=== PATIENT | female | born 1995 | race Caucasian/White ===

== ENCOUNTER 2016-10-03 22:40 | Emergency (ER) | payer BC ==
[~2016-10-03] VITALS: Ht 160 cm; Wt 123.5 kg
[~2016-10-03 22:40] MED LIST: ACYC800T PO; ALBU8.5H5 IH; CETI10CA PO; FLUT16SP17 NASAL; UDROBDM PO
[2016-10-03 22:43] VITALS: Ht 160 cm; Wt 123.5 kg
[2016-10-04] MEDS ORDERED: ELIM TOP (01:53)
[2016-10-04] MEDS ORDERED: BEN25 PO (01:54)
[2016-10-04] MEDS ORDERED: HC30CR25 TOP (01:54)
--- NOTE | 2016-10-04 01:59 | ERD ---
ER Documentation Chief Complaint Date/Time DATE: 10/04/16 TIME: 01:56 Chief Complaint ABD. RASH WITH UTICARIA X 3 DAYS; RECENT EXPOSURE TO SCABIES HPI Patient is a 21-year-old female who presents the ED with a rash on her abdomen 3 days. 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 She states that she has been taking care of this patient. She states that she has itchiness on her abdomen. She denies any rashes anywhere else on her body. She denies scabbing of her rashes. She denies chest pain, cough, shortness of breath or difficulty breathing. She denies angioedema or shortness of breath. She denies nausea, vomiting or diarrhea. She has no other symptoms today. ROS All systems reviewed and are negative except as per history of present illness. Medications Home Meds Active Scripts Diphenhydramine Hcl* (Benadryl*) 25 Mg Cap, 25 MG PO Q6, #30 CAP Prov:TADEO BLOCK PA-C 10/04/16 Hydrocortisone* Topical (Hydrocortisone* Topical) 2.5%-28.3 Gm Cream..g., 1 APPLIC TOP BID, #1 TUB Prov:TADEO BLOCK PA-C 10/04/16 Permethrin* (Elimite*) 5% Cr, 3 APPLIC TOP ONCE for 7 Days, TUB Prov:TADEO BLOCK PA-C 10/04/16 Acyclovir* (Acyclovir*) 800 Mg Tablet, 800 MG PO BID for 5 Days, TAB 1 Refill Prov:LOS PATTERSON PA-C 08/16/16 Guaifenesin-Dextromethorphan* (Robitussin* DM) 100MG/10MG/5ML Syrup, 10 ML PO Q6H Y for COUGH for 5 Days, ML Prov:JEREMI RIVERA PA-C 05/27/16 Fluticasone Propionate* (Fluticasone Propionate* Nasal) 50 Mcg/[place] - 16 Gm [place].susp, 1 SPRAY NASAL BID, #1 BOTTLE TO EACH NOSTRIL Prov:JEREMI RIVERA PA-C 05/27/16 Cetirizine Hcl* (Zyrtec*) 10 Mg Capsule, 10 MG PO DAILY, #14 TAB.CHEW Prov:JEREMI RIVERABrittany SCHILLING 05/27/16 Albuterol Sulfate* (Albuterol Sulfate* HFA) 8.5 Gm Hfa.aer.ad, 2 PUFF IH Q6, #1 EA Prov:SARTHAK GARCIABrittany SCHILLING 07/17/15 Reported Medications [None] No Conflict Check 07/11/12 Allergies Allergies: Coded Allergies: No Known Allergy (Unverified , 07/11/12) PMhx/Soc History of Surgery: No Anesthesia Reaction: No Hx Neurological Disorder: No Hx Respiratory Disorders: No Hx Cardiac Disorders: No Hx Psychiatric Problems: No Hx Miscellaneous Medical Probl: Yes (cold sores) Hx Alcohol Use: No Hx Substance Use: No Hx Tobacco Use: No Physical Exam Vitals Vital Signs Date Time Temp Pulse Resp B/P Pulse Ox O2 Delivery O2 Flow Rate FiO2 10/03/16 22:43 98.5 104 18 132/61 97 Physical Exam GENERAL: Well-developed, well-nourished female. Appears in no acute distress. HEAD: Normocephalic, atraumatic. NECK: Supple. No lymphadenopathy or thyromegaly. No meningismus. negative kernig. negative brudinski. LUNG: Clear to auscultation bilaterally. No rhonchi, wheezing, rales or coarse breath sounds. ABDOMEN: No scars, ecchymosis. Soft, nontender, and nondistended. Positive bowel sounds in all four quadrants. No rebound tenderness, no guarding. (-) McBurneys point tenderness. No CVA tenderness. erythematous rash on abdomen. Not scabbing. No signs of infection. BACK: No midline tenderness. Extremities: Equal pulses bilaterally. No peripheral clubbing, cyanosis or edema. No unilateral leg swelling. NEUROLOGIC: Alert and oriented. Moving all four extremities. 5/5 strength in all extremities. Normal speech. Steady gait. SKIN: Normal color. Warm and dry. No rashes or lesions. Capillary refill < 2 seconds Procedures/MDM ER COURSE: I kept the patient and/or family informed of laboratory and diagnostic imaging results throughout the emergency room course. MEDICAL DECISION MAKING: This is a 21-year-old female who presents with rash. Vital signs were reviewed. Patient is afebrile. Patient is not hypoxic. Patient is not toxic or ill- appearing. Patient has a rash of uncertain etiology. I have low suspicion for scabies. However I will be giving patient permethrin as preventative measures. Her pulse of 104 is likely stress reaction. I have low suspicion for any cardiac emergency. Low suspicion for pneumonia, PE, pneumothorax, ACS, epiglottitis, obstruction, TB, pertussis, meningitis, sepsis. DISCHARGE: At this time, patient is stable for discharge and outpatient management with no new complaints during the ER course. Patient was sent home with permethrin, Benadryl and hydrocortisone. Patient will be discharged home with instructions to recheck for new or worsening symptoms such as fever, nausea, weakness, LOC and to follow up with primary care in the next 1-2 days. Patient was advised to return to the ER for any new or worsening symptoms. Plan was discussed and patient and/or family understands and agrees. Home instructions were given. Departure Diagnosis: Primary Impression: Rash Condition: Stable Patient Instructions: Scabies Additional Instructions: Call your primary care doctor TOMORROW for an appointment during the next 1-2 days.See the doctor sooner or return here if your condition worsens before your appointment time. TADEO BLOCK PA-C Oct 04, 2016 01:59
[2016-10-04 02:12] VITALS: BP 128/76; PULSE 88; RESP 18; TEMP 98
== END 2016-10-04 02:13 | disposition home or self-care (01) ==
LOC: FTE 22:40
DX: R21 Rash and other nonspecific skin eruption (principal); E11.9 Type 2 diabetes mellitus without complications
CPT/HCPCS: 99283

== ENCOUNTER 2016-11-22 17:59 | Emergency (ER) | payer BC ==
[~2016-11-22] VITALS: Ht 160 cm; Wt 113.6 kg
[~2016-11-22 17:59] MED LIST changes: +BEN25 PO; +ELIM TOP; +HC30CR25 TOP
[2016-11-22 18:05] VITALS: Ht 160 cm; Wt 113.6 kg
[2016-11-22] MEDS ORDERED: KETOROLAC 30 MG INJ IV STA (18:13)
[2016-11-22] MEDS ORDERED: HYDROCODONE/APAP (5/325) TAB PO ONE (18:30)
[2016-11-22] MEDS ORDERED: morphine 4 MG/ML VIAL IV STA (18:36)
[2016-11-22] MEDS ORDERED: ONDANSETRON 4 MG INJ IV STA (18:47)
--- NOTE | 2016-11-22 19:10 | ERD ---
ER Documentation Chief Complaint Date/Time DATE: 11/22/16 TIME: 19:07 Chief Complaint 06/26 r. ankle pain x 1 day after fall HPI This is a 21-year-old female who presents to the emergency department today complaining of right right leg pain after falling down some stairs earlier this evening. Patient was brought in by ambulance. States she is in severe pain. Denies any previous trauma. Denies any fevers or chills. ROS All systems reviewed and are negative except as per history of present illness. Medications Home Meds Active Scripts Neomycin Mcdonough/Bacitrac Zn/Poly (Triple Antibiotic Ointment) 1 Each Oint.pack, 1 EACH TP BID, #10 Prov:JEREMI RIVERA PA-C 11/22/16 Naproxen* (Naprosyn*) 500 Mg Tablet, 500 MG PO BID Y for PAIN AND/OR INFLAMMATION, #30 TAB Prov:JEREMI RIVERA PA-C 11/22/16 Hydrocodone/Acetaminophen (Mccammon 5-325 Tablet) 1 Each Tablet, 1 TAB PO Q6H Y for PAIN, #15 TAB Prov:JEREMI RIVERA PA-C 11/22/16 Diphenhydramine Hcl* (Benadryl*) 25 Mg Cap, 25 MG PO Q6, #30 CAP Prov:TADEO BLOCK PA-C 10/04/16 Hydrocortisone* Topical (Hydrocortisone* Topical) 2.5%-28.3 Gm Cream..g., 1 APPLIC TOP BID, #1 TUB Prov:TADEO BLOCK PA-C 10/04/16 Permethrin* (Elimite*) 5% Cr, 3 APPLIC TOP ONCE for 7 Days, TUB Prov:TADEO BLOCK PA-C 10/04/16 Acyclovir* (Acyclovir*) 800 Mg Tablet, 800 MG PO BID for 5 Days, TAB 1 Refill Prov:LOS PATTERSON PA-C 08/16/16 Guaifenesin-Dextromethorphan* (Robitussin* DM) 100MG/10MG/5ML Syrup, 10 ML PO Q6H Y for COUGH for 5 Days, ML Prov:JEREMI RIVERA PA-C 9/10/16 Fluticasone Propionate* (Fluticasone Propionate* Nasal) 50 Mcg/[place] - 16 Gm [place].susp, 1 SPRAY NASAL BID, #1 BOTTLE TO EACH NOSTRIL Prov:JEREMI RIVERA PA-C 05/27/16 Cetirizine Hcl* (Zyrtec*) 10 Mg Capsule, 10 MG PO DAILY, #14 TAB.CHEW Prov:JEREMI RIVERA PA-C 05/27/16 Albuterol Sulfate* (Albuterol Sulfate* HFA) 8.5 Gm Hfa.aer.ad, 2 PUFF IH Q6, #1 EA Prov:RADHASARTHAK PA-C 07/17/15 Reported Medications [None] No Conflict Check 07/11/12 Allergies Allergies: Coded Allergies: No Known Allergy (Unverified , 11/22/16) PMhx/Soc Medical and Surgical Hx: pt denies Medical Hx, pt denies Surgical Hx History of Surgery: No Anesthesia Reaction: No Hx Neurological Disorder: No Hx Respiratory Disorders: No Hx Cardiac Disorders: No Hx Psychiatric Problems: No Hx Miscellaneous Medical Probl: Yes (cold sores) Hx Alcohol Use: No Hx Substance Use: No Hx Tobacco Use: No Smoking Status: Never smoker Physical Exam Vitals Vital Signs Date Time Temp Pulse Resp B/P Pulse Ox O2 Delivery O2 Flow Rate FiO2 11/22/16 18:05 98.6 130 20 126/85 98 Physical Exam Const: Obese, mild distress Head: Atraumatic Eyes: Normal Conjunctiva ENT: Normal External Ears, Nose and Mouth. Neck: Full range of motion..~ No meningismus. Resp: Clear to auscultation bilaterally Cardio: Regular rate and rhythm, no murmurs Abd: Soft, non tender, non distended. Normal bowel sounds Skin: No petechiae or rashes. Abrasion left tibia Back: No midline or flank tenderness MSK right knee, tibia, ankle, foot with no obvious deformity. Effusion over lateral aspect of right ankle. Unable to assess range of motion secondary to pain. Pulses 2+. Distal neurovascularly intact. Neur: Awake and alert Psych: Normal Mood and Affect Results 24 hrs Current Medications Medications (Trade) Dose Ordered Sig/Jg Route PRN Reason Start Time Stop Time Status Last Admin Dose Admin Ketorolac Tromethamine (Toradol) 30 mg ONCE STAT IV 11/22/16 18:13 11/22/16 18:14 Cancel Acetaminophen/ Hydrocodone Bitart (Mccammon (5/325)) 1 tab ONCE ONCE PO 11/22/16 18:30 11/22/16 18:31 DC 11/22/16 18:25 Morphine Sulfate (morphine) 4 mg ONCE STAT IV 11/22/16 18:36 11/22/16 18:37 DC 11/22/16 18:45 Ondansetron HCl (Zofran Inj) 4 mg ONCE STAT IV 11/22/16 18:47 11/22/16 18:48 DC 11/22/16 18:51 DIAGNOSTIC IMAGING REPORT Patient: [place] MUIR : 1995 Age: 21 Sex: F MR #: [id number] DOS: 11/22/16 0000 Ordering MD: JEREMI RIVERA PA-C Location: [facility] Room/Bed: PROCEDURE: XR Ankle. CLINICAL INDICATION: Right ankle pain. TECHNIQUE: Three views of the right ankle were performed. COMPARISON: None. FINDINGS: No acute fracture or dislocation is seen. The ankle mortise is symmetric. No radiopaque foreign body is identified. Moderate soft tissue swelling overlying the lateral ankle is noted. IMPRESSION: 1. No acute fracture or dislocation. 2. Moderate soft tissue swelling overlying the lateral ankle. RPTAT: HH .Jagdeep Graf MD, MD Date Time Electronically viewed and signed by .Jagdeep Graf MD, MD on 11/22/2016 19: 33 .N/ CC: JEREMI RIVERA PA-C DIAGNOSTIC IMAGING REPORT Patient: [place] MUIR : 1995 Age: 21 Sex: F MR #: [id number] DOS: 11/22/16 0000 Ordering MD: JEREMI RIVERA PA-C Location: [facility] Room/Bed: PROCEDURE: XR Foot. CLINICAL INDICATION: Right foot pain TECHNIQUE: Three views of the right foot are available for review. COMPARISON: None available FINDINGS: No acute fracture or dislocation is seen. No radiopaque foreign body is identified. No significant soft tissue swelling is noted. IMPRESSION: 1. No acute fracture or dislocation. RPTAT: .Jagdeep Graf MD, MD Date Time Electronically viewed and signed by .Jagdeep Graf MD, MD on 11/22/2016 19: 33 .N/ CC: JEREMI RIVERA PA-C DIAGNOSTIC IMAGING REPORT Patient: [place] MUIR : 1995 Age: 21 Sex: F MR #: [id number] DOS: 11/22/16 0000 Ordering MD: JEREMI RIVERA PA-C Location: [facility] Room/Bed: PROCEDURE: XR Tibia and Fibula. CLINICAL INDICATION: Pain. TECHNIQUE: Two views of the right tibia and fibula are available for review. COMPARISON: None available FINDINGS: No acute fracture or dislocation is seen. No radiopaque foreign body is identified. No significant soft tissue swelling is noted. IMPRESSION: 1. No acute fracture or dislocation. RPTAT: .Jagdeep Graf MD, MD Date Time Electronically viewed and signed by .Jagdeep Graf MD, MD on 11/22/2016 19: 32 .N/ CC: JEREMI RIVERA PA-C Procedures/[facility] This a 21-year-old female who is brought in by ambulance today complaining of right leg pain after sustaining a fall down some stairs earlier this evening while carrying laundry. Patient was complaining of considerable amount of pain. I did obtain images given the trauma. Per the radiology report images of the tibia and fibula are unremarkable. There is no acute fracture dislocation Images of the right ankle show no acute fracture dislocation. There is moderate soft tissue swelling overlying the lateral ankle. Ankle mortise is symmetric. Images of the right foot show no acute fracture dislocation. Patient symptoms at this time is consistent with sprain versus strain. Patient's wounds were cleaned here in the emergency department. She is complaining of a significant amount of pain and was initially given Mccammon but states that pain persisted. She was then given morphine and Zofran. Patient will be given a prescription for Mccammon for home as well as Naprosyn and triple antibiotic ointment.. She was given crutches to help ambulate as well as an Koko wrap. She was instructed to ice and elevate her limb. At this time the patient is stable for discharge and outpatient management. Patient should follow up with their PCP in the next 1-2 days. They may return to the emergency department sooner for any persistent or worsening of symptoms. Patient understood and agreed with the plan. Departure Diagnosis: Primary Impression: Ankle injury Encounter type: initial encounter Laterality: right Qualified Code: S99.911A - Ankle injury, right, initial encounter Condition: Fair JEREMI RIVERA PA-C Nov 22, 2016 19:10
--- NOTE | 2016-11-22 19:32 | RADRPT ---
PROCEDURE: XR Tibia and Fibula. CLINICAL INDICATION: Pain. TECHNIQUE: Two views of the right tibia and fibula are available for review. COMPARISON: None available FINDINGS: No acute fracture or dislocation is seen. No radiopaque foreign body is identified. No significant soft tissue swelling is noted. IMPRESSION: 1. No acute fracture or dislocation. RPTAT: HH .Jagdeep Graf MD, Date Time Electronically viewed and signed by .Jagdeep Graf MD, on 11/22/2016 19:32 .N/
--- NOTE | 2016-11-22 19:33 | RADRPT ---
PROCEDURE: XR Foot. CLINICAL INDICATION: Right foot pain TECHNIQUE: Three views of the right foot are available for review. COMPARISON: None available FINDINGS: No acute fracture or dislocation is seen. No radiopaque foreign body is identified. No significant soft tissue swelling is noted. IMPRESSION: 1. No acute fracture or dislocation. RPTAT: HH .Jagdeep Graf MD, Date Time Electronically viewed and signed by .Jagdeep Graf MD, on 11/22/2016 19:33 .N/
--- NOTE | 2016-11-22 19:34 | RADRPT ---
PROCEDURE: XR Ankle. CLINICAL INDICATION: Right ankle pain. TECHNIQUE: Three views of the right ankle were performed. COMPARISON: None. FINDINGS: No acute fracture or dislocation is seen. The ankle mortise is symmetric. No radiopaque foreign body is identified. Moderate soft tissue swelling overlying the lateral ankle is noted. IMPRESSION: 1. No acute fracture or dislocation. 2. Moderate soft tissue swelling overlying the lateral ankle. RPTAT: HH .Jagdeep Graf MD, Date Time Electronically viewed and signed by .Jagdeep Graf MD, on 11/22/2016 19:33 .N/
[2016-11-22] MEDS ORDERED: HYDR-906 PO (19:43)
[2016-11-22] MEDS ORDERED: NAPR-260 PO (19:43)
[2016-11-22] MEDS ORDERED: NEOM1PAC TP (19:46)
[2016-11-22 20:19] VITALS: BP 119/65; PULSE 88; RESP 18; TEMP 98.8
== END 2016-11-22 20:44 | disposition home or self-care (01) ==
LOC: FTE 17:59
DX: S99.911A Unspecified injury of right ankle, initial encounter (principal); E11.9 Type 2 diabetes mellitus without complications; W10.9XXA Fall (on) (from) unspecified stairs and steps, initial encounter; Y92.9 Unspecified place or not applicable
CPT/HCPCS: 73590; 73610; 73630; 96374; 96375; J2270; J2405; Z7502; Z7610

== ENCOUNTER 2017-12-05 11:28 | Emergency (ER) | END 2017-12-05 16:35 | disposition home or self-care (01) ==

== ENCOUNTER 2017-12-09 13:29 | Emergency (ER) | END 2017-12-09 17:53 | disposition home or self-care (01) ==

== ENCOUNTER 2017-12-10 00:59 | Emergency (ER) | END 2017-12-10 04:30 | disposition left against medical advice (07) ==

== ENCOUNTER 2018-01-31 13:43 | Inpatient (IN) | END 2018-02-05 15:15 | disposition home or self-care (01) | DRG 505 ==

== ENCOUNTER 2018-02-27 20:08 | Emergency (ER) | END 2018-02-28 18:38 | disposition left against medical advice (07) ==

== ENCOUNTER 2018-05-19 23:37 | Emergency (ER) | END 2018-05-20 01:58 | disposition home or self-care (01) ==